=== PATIENT | female | born 1970 | race Native Hawaiian/Other Pacific Islander ===

== ENCOUNTER 2016-11-12 03:12 | Emergency (ER) | payer OTHER ==
[~2016-11-12] VITALS: Ht 157.5 cm; Wt 87.1 kg
[2016-11-12 04:25] LABS: POTASSIUM 3.6 mmol/L (3.6-5.2)
[2016-11-12 04:26] LABS: PLATELET COUNT 281 K/uL (152-353)
[2016-11-12 05:22] VITALS: BP 126/80; TEMP 98.1
== END 2016-11-12 05:23 | disposition home or self-care (01) ==
LOC: ED 03:12
PROVIDERS: Emergency Medicine
DX: K21.9 Gastro-esophageal reflux disease without esophagitis (principal); K59.00 Constipation, unspecified; R79.89 Other specified abnormal findings of blood chemistry
CPT/HCPCS: 36415; 80053; 80074; 85027; 96360; 99284

== ENCOUNTER 2016-11-28 11:59 | Outpatient (CLI) | payer OTHER | END 2016-11-28 19:02 | disposition home or self-care (01) | LOC: RAD 11:59 | DX: M25.511 Pain in right shoulder (principal) ==

== ENCOUNTER 2019-07-17 18:31 | Emergency (ER) | payer OTHER ==
[~2019-07-17] VITALS: Ht 154.9 cm; Wt 85.7 kg
[2019-07-17 20:32] VITALS: BP 151/72; TEMP 97.9
== END 2019-07-17 20:20 | disposition home or self-care (01) ==
LOC: ED 18:31
DX: N39.0 Urinary tract infection, site not specified (principal); M54.5 Low back pain
CPT/HCPCS: 81000; 87077; 87086; 87088; 87185; 99283

== ENCOUNTER 2019-12-13 20:58 | Emergency (ER) | payer OTHER ==
[~2019-12-13] VITALS: Ht 154.9 cm; Wt 85.7 kg
[2019-12-13 23:20] VITALS: BP 147/86; TEMP 98.5
== END 2019-12-13 23:20 | disposition home or self-care (01) ==
LOC: ED 20:58
DX: J06.9 Acute upper respiratory infection, unspecified (principal)
CPT/HCPCS: 87502; 87651; 96372; 99283; J1885; J2930

== ENCOUNTER 2019-12-15 19:32 | Emergency (ER) | payer OTHER ==
[~2019-12-15] VITALS: Ht 157.5 cm; Wt 88.9 kg
[2019-12-15 20:45] LABS: PLATELET COUNT 290 K/uL (152-353)
[2019-12-15 20:51] LABS: POTASSIUM 4.1 mmol/L (3.6-5.2)
[2019-12-16 00:45] VITALS: BP 150/72; TEMP 98.3
[2019-12-17] MEDS ORDERED: PAXIL20 MG PO (03:33)
[2019-12-17] MEDS ORDERED: LISI20TA31 (03:33)
[2019-12-17] MEDS ORDERED: LEVO500I3 PO (03:35)
[2019-12-17] MEDS ORDERED: VERA180T12 PO (03:36)
[2019-12-17] MEDS ORDERED: NOVOLIN R100 UNIT/1 SC (03:41)
== END 2019-12-16 00:45 | disposition home or self-care (01) ==
LOC: ED 19:32
PROVIDERS: Family Medicine
DX: T78.49XA Other allergy, initial encounter (principal)
CPT/HCPCS: 80053; 82947; 82962; 85027; 96360; 96361; 96372; 99284; J0171; J1815; J3410

== ENCOUNTER 2019-12-16 22:42 | Inpatient (IN) | payer OTHER ==
[~2019-12-16] VITALS: Ht 154.9 cm; Wt 104.9 kg
[2019-12-16 22:42] VITALS: BP 164/95; TEMP 98.9
[2019-12-17 00:02] LABS: PLATELET COUNT 245 K/uL (152-353)
[2019-12-17 00:31] LABS: POTASSIUM 3.4 mmol/L (3.6-5.2)
--- NOTE | 2019-12-17 02:39 | NUR ---
12/17/2019 0150 PT TO ROOM 1114 DX HYPERGLYCEMIA,ALLERGIC REACTION.PT STATES CAMR TO ER HAVING TROUBLE BREATHING WITH TINGLING AND SWELLING TO MOUTH.PT STATES SHE WAS TREATED IN ER LAST NIGHT BUT RASH HAS GOT WORSE ALONG WITH ELEVATED BLOOD SUGAR.22 TO RT AC INTACT WITH NS TO RUN AT 125ML/HR.CALL LIGHT WITHIN REACH.FAMILY MEMBERS PRESENT IN ROOM.
[2019-12-17 02:58] VITALS: BP 160/66; TEMP 97.9; Ht 154.9 cm; Wt 104.9 kg
[2019-12-17] MEDS ORDERED: LISI20TA31 (03:33)
[2019-12-17] MEDS ORDERED: PAXIL20 MG PO (03:33)
[2019-12-17] MEDS ORDERED: LEVO500I3 PO (03:35)
[2019-12-17] MEDS ORDERED: VERA180T12 PO (03:36)
[2019-12-17] MEDS ORDERED: NOVOLIN R100 UNIT/1 SC (03:41)
[2019-12-17 03:57] VITALS: BP 160/66; TEMP 97.9
--- NOTE | 2019-12-17 05:23 | NUR ---
PATIENT WAS ADMITTED WITH SOB AND AN ALLERGIC REACTION, HYPERGLYCEMIA AND LABS REVEAL: WBC, GL 520, BUN, CREAT, ALL ELEVATED AND NA, K, CL, AND CALCIUM DEPRESSED. AND HAS A HISTORY OF DM AND HTN, THEN B/S AT 22 PER NURSING NOTES, N/S AT 125 ML Q HOUR, 49TOF, ON 1800 CALORIE DIET, TROUBLE BREATHING D/T THE ALLERGIC REACTION. IS 5'1"/61 " AND IS 231.4 LBS. AND IBW = 105+/-10% ( 94-116 LBS.) AND KCAL NEEDS FOR IBW X 25 = 1200, X 30 = 1400, X 35 = 1700, X 40 = 1900 KCAL/DAY AND PROTEIN NEEDS X .8 TO 1.5 = 38 TO 72 GRAMS A DAY AND FLUIDS FOR WEIGHT X 25 TO 30 = 2600 TO 3200 ML PER DAY. BMI = 43.6 AND IS HIGHER THAN THE HIGHEST STAGE OF OBESITY AND IS 220% OF IBW. RECOMMEND: 1-ENCOURGE TO FOLLOW DIET AND ADD HIGH FIBER.
[2019-12-17 08:00] VITALS: BP 156/63; TEMP 98.7
--- NOTE | 2019-12-17 11:00 | NUR ---
ESTELLE ALCANTARA AT THE NURSES STATION AFTER ASSITING PATIENT TO THE BATHROOM. TECH STATED PATIENT COMMENTED THAT SHE WAS HAVING TROUBLE SWALLOWING AND WHILE SHE WAS DRINKING SOME FLUID SHE FELT THE WATER JUST DRIP FROM HER MOUTH AND WAS NOT ABLE TO SWALLOW. THIS NURSE NOTIFIED ABOUT INCIDENT AND WE BOTH WENT TO ASSESS PATIENT. UPON ENTERING ROOM PATIENT NOTED WITH SHORTNESS OF BREATH WITH SLIGHT LABORED BREATHING WHEN TALKING, PATIENT STATES I JUST FEEL LIKE THE SALIVA IS IN THE BACK OF MY THROAT. ASSESSED THROAT AND IT WAS NOTED SLIGHTLY DIFFICULT TO OPEN HER MOUTH AND STICK HER TONGUE. ORDERED PEPCID 40 MG IV , BENADRYL 25 MG IV, ADRENLIN 0.5 MG IM AND RACEMIC EPINEPHRINE BREATHING TREATMENT. RESPIRATORY IS HERE AT THE BEDSIDE. IT WAS ALSO NOTED AT THIS TIME PATIENT HR INCREASED 155-160. ALL MEDICATIONS GIVEN ORDERED AND WITHIN A FEW MINUTES PATIENT LABORED BREATHING MINIMIZED AND PATIENT STARTED FEELING BETTER. PATIENT CONTINUED WITH URTICARIA WITH HIVES/WELTS NOTED IN ALL EXTREMETIES, TORSO AND NECK. NEW ORDERS GIVEN TO TRANSFER PATIENT TO PCU FOR FURTHER CLOSER OBSERVATION.
--- NOTE | 2019-12-17 12:30 | NUR ---
PATIENT TRANSFERRED TO PCU #3 IN BED WITHOUT DIFFICULTY. REPORT GIVEN TO CONNIE KESSLER RN.
--- NOTE | 2019-12-17 13:45 | NUR ---
PATIENT ADMITTED TO [facility] FROM MED SURG FLOOR ROOM 1114. ADMITTED UNDER DR PACHECO SERVICES. PATIENT ORIENTED TO ROOM PLACED ON MONITOR. DENIES PAIN C/O ITCHING. IV FLUIDS INFUSING WITHOUT DIFFICULTY.
[2019-12-17 14:30] VITALS: BP 176/65; TEMP 99.3
--- NOTE | 2019-12-17 16:11 | NUR ---
PATIENT UP IN ROOM HR 105 CONTINUES TO C/O ITCHING DR PACHECO VISITED. RECIEVED HYDROXYZINE 25 MG IM RGM.
[2019-12-17 16:30] VITALS: BP 140/60; TEMP 99
--- NOTE | 2019-12-17 18:45 | NUR ---
ITCHING CONTINUES, CALLED TO DR PACHECO REPORT PATIENT STATUS. RECIEVED ORDERS TO GIVE BENADRYL AND VISTARIL IM. PULLED BOTH MEDS GIVEN IM ORDERED. REPORT TO ONCOMING SHIFT.
[2019-12-17 19:00] VITALS: BP 143/58; TEMP 97.9
--- NOTE | 2019-12-17 22:00 | NUR ---
PT AMBULATED TO RESTROOM.
[2019-12-18] VITALS (11 sets, daily range): BP systolic 117–147; BP diastolic 50–86; TEMP 97.6–98.4
--- NOTE | 2019-12-18 00:56 | NUR ---
PT ITCHING, HYDROXYZINE IV GIVEN
--- NOTE | 2019-12-18 05:00 | NUR ---
PT UP TO BSC TO VOID, TOLERATED WELL
--- NOTE | 2019-12-18 06:43 | NUR ---
RESTING AT PRESENT.
[2019-12-18 08:43] LABS: PLATELET COUNT 201 K/uL (152-353)
[2019-12-18 08:54] LABS: POTASSIUM 3.6 mmol/L (3.6-5.2)
--- NOTE | 2019-12-18 11:12 | NUR ---
DR PACHECO IN TO SEE PT. PT C/O ITCHING, MEDICATED WITH VISTARIL PER DR'S ORDERS.
--- NOTE | 2019-12-18 13:33 | NUR ---
PT RESTING WITH EYES CLOSED. DENIES ITCHING AT THIS TIME.
--- NOTE | 2019-12-18 15:16 | NUR ---
DR Darryl PACHECO BACK IN TO SEE PT.
[2019-12-18] MEDS ORDERED: HYDR25CA25 PO (15:39)
--- NOTE | 2019-12-18 15:55 | NUR ---
IV'S D/C'D CANNULAS INTACT SITES SECURED.PT UP IN ROOM DRESSING.
--- NOTE | 2019-12-18 16:00 | NUR ---
D/C INSTRUCTIONS. PT VERBALIZED UNDERSTANDING.
--- NOTE | 2019-12-18 16:07 | NUR ---
PT D/C STABLE WITH BELONGINGS VIA WC TO PRIVATE AUTO PER PRAVEEN STANLEY.
== END 2019-12-18 16:07 | disposition home or self-care (01) | DRG 916 ==
LOC: ED 22:42 → MED/SURG 12-17 00:58 → PCU 12-17 13:30 → MED/SURG 12-17 13:30 → PCU 12-17 13:30
PROVIDERS: Emergency Medicine; ADMIT Internal Medicine
DX: T88.6XXA Anaphylactic reaction due to adverse effect of correct drug or medicament properly administered, initial encounter (principal); L29.8 Other pruritus; L50.8 Other urticaria; I10 Essential (primary) hypertension; K21.9 Gastro-esophageal reflux disease without esophagitis; E03.8 Other specified hypothyroidism; E11.9 Type 2 diabetes mellitus without complications
CPT/HCPCS: 80053; 85027; 94664; 96360; 96372; 96375; 99284; J0171; J1200; J1815; J3410

== ENCOUNTER 2020-03-09 13:22 | Outpatient (CLI) | payer BC, OTHER ==
[~2020-03-09 13:22] MED LIST: HYDR25CA25 PO; LEVO500I3 PO; LISI20TA31; NOVOLIN R100 UNIT/1 SC; PAXIL20 MG PO; VERA180T12 PO
== END 2020-03-09 21:53 | disposition home or self-care (01) ==
LOC: MAMMO 13:22
DX: Z12.31 Encounter for screening mammogram for malignant neoplasm of breast (principal)

== ENCOUNTER 2020-05-29 13:14 | Inpatient (IN) | payer BC, OTHER ==
[~2020-05-29] VITALS: Ht 157.5 cm; Wt 89.5 kg
[2020-05-29] VITALS (8 sets, daily range): BP systolic 103–119; BP diastolic 48–63; TEMP 98.4–99.5; Ht 157.5 cm; Wt 89.5 kg
[2020-05-29 14:45] LABS: PLATELET COUNT 187 K/uL (152-353)
[2020-05-29 14:52] LABS: POTASSIUM 3.2 mmol/L (3.6-5.2); SODIUM 136 mmol/L (136-145)
[2020-05-29 15:06] LABS: PARTIAL THROMBOPLASTIN TIME 25.5 SECONDS (24.5-33.6)
[2020-05-30] VITALS: BP 108/47; TEMP 100.1
[2020-05-30 04:00] VITALS: BP 116/51; TEMP 99.8
[2020-05-30 08:00] VITALS: BP 124/68; TEMP 99.9
[2020-05-30 10:31] LABS: POTASSIUM 3.4 mmol/L (3.6-5.2)
[2020-05-30] MEDS ORDERED: OMEPRAZOLE DR40 MG PO (11:09)
[2020-05-30] MEDS ORDERED: LISI20TA31 PO (11:12)
[2020-05-30 12:00] VITALS: BP 127/66; TEMP 99.5
[2020-05-30 16:00] VITALS: BP 125/71; TEMP 102.3
[2020-05-30 20:00] VITALS: BP 110/64; TEMP 98.5
[2020-05-31] VITALS: BP 138/79; TEMP 98.7
[2020-05-31 04:00] VITALS: BP 148/43; TEMP 98.6
[2020-05-31 06:14] LABS: PLATELET COUNT 214 K/uL (152-353)
[2020-05-31 06:32] LABS: POTASSIUM 4.1 mmol/L (3.6-5.2)
[2020-05-31 08:00] VITALS: BP 12/65; TEMP 98.3
[2020-05-31 12:00] VITALS: BP 117/64; TEMP 98.7
[2020-05-31 19:38] VITALS: BP 127/69; TEMP 99.2
[2020-06-01] VITALS: BP 114/58; TEMP 99
[2020-06-01 04:01] VITALS: BP 132/71; TEMP 99.5
[2020-06-01 05:40] LABS: PLATELET COUNT 247 K/uL (152-353)
[2020-06-01 08:00] VITALS: BP 144/76; TEMP 100.2
[2020-06-01 12:00] VITALS: BP 140/85; TEMP 98.5
[2020-06-01 20:00] VITALS: BP 133/72; TEMP 98.6
[2020-06-02] VITALS (8 sets, daily range): BP systolic 112–133; BP diastolic 61–82; TEMP 97.5–99.4
[2020-06-02 05:17] LABS: PLATELET COUNT 288 K/uL (152-353)
[2020-06-02 05:21] LABS: POTASSIUM 3.7 mmol/L (3.6-5.2)
[2020-06-03] VITALS (19 sets, daily range): BP systolic 103–180; BP diastolic 44–88; TEMP 97.4–101.1
[2020-06-03 05:39] LABS: PLATELET COUNT 356 K/uL (152-353)
[2020-06-03 06:25] LABS: POTASSIUM 3.7 mmol/L (3.6-5.2)
[2020-06-04] VITALS (21 sets, daily range): BP systolic 107–164; BP diastolic 50–133; TEMP 98–98.8
[2020-06-04 09:53] LABS: POTASSIUM 3.9 mmol/L (3.6-5.2)
[2020-06-04 09:56] LABS: PLATELET COUNT 391 K/uL (152-353)
[2020-06-05] VITALS (22 sets, daily range): BP systolic 113–180; BP diastolic 47–86; TEMP 97.8–100.1
[2020-06-05 06:52] LABS: PLATELET COUNT 345 K/uL (152-353)
[2020-06-06] VITALS (21 sets, daily range): BP systolic 120–151; BP diastolic 50–91; TEMP 98.4–99.1
[2020-06-06 06:08] LABS: PLATELET COUNT 432 K/uL (152-353)
[2020-06-07] VITALS (19 sets, daily range): BP systolic 95–140; BP diastolic 37–73; TEMP 98.6–100.4
[2020-06-07 06:42] LABS: PLATELET COUNT 410 K/uL (152-353)
[2020-06-07 06:45] LABS: POTASSIUM 4.3 mmol/L (3.6-5.2)
[2020-06-08] VITALS (24 sets, daily range): BP systolic 96–143; BP diastolic 46–79; TEMP 97.8–99.4
[2020-06-08 08:10] LABS: PLATELET COUNT 434 K/uL (152-353)
[2020-06-08 08:15] LABS: POTASSIUM 4.5 mmol/L (3.6-5.2)
[2020-06-09] VITALS (20 sets, daily range): BP systolic 110–147; BP diastolic 35–81; TEMP 98.4–100.7
[2020-06-09 06:27] LABS: PLATELET COUNT 450 K/uL (152-353)
[2020-06-09 06:42] LABS: POTASSIUM 4.8 mmol/L (3.6-5.2)
[2020-06-10] VITALS (11 sets, daily range): BP systolic 75–142; BP diastolic 44–82; TEMP 98.1–100.5
[2020-06-10 05:10] LABS: POTASSIUM 4.7 mmol/L (3.6-5.2)
[2020-06-10 05:39] LABS: PLATELET COUNT 419 K/uL (152-353)
[2020-06-11] VITALS (22 sets, daily range): BP systolic 89–155; BP diastolic 35–78; TEMP 99.1–99.6
[2020-06-11 05:38] LABS: POTASSIUM 4.3 mmol/L (3.6-5.2)
[2020-06-12] VITALS (17 sets, daily range): BP systolic 99–156; BP diastolic 34–103; TEMP 97.5–98.9
[2020-06-12 06:01] LABS: POTASSIUM 5.1 mmol/L (3.6-5.2)
[2020-06-13] VITALS (16 sets, daily range): BP systolic 100–132; BP diastolic 26–68; TEMP 97.8–98.6
[2020-06-13 05:44] LABS: PLATELET COUNT 359 K/uL (152-353)
[2020-06-13 05:51] LABS: POTASSIUM 4.9 mmol/L (3.6-5.2)
[2020-06-13] MEDS ORDERED: VICTOZA18 MG/3 ML SC (16:34)
[2020-06-14] VITALS (19 sets, daily range): BP systolic 98–123; BP diastolic 50–70; TEMP 97.4–98.6
[2020-06-14 08:21] LABS: POTASSIUM 4.5 mmol/L (3.6-5.2)
[2020-06-14 08:23] LABS: PLATELET COUNT 373 K/uL (152-353)
[2020-06-15] VITALS (10 sets, daily range): BP systolic 101–139; BP diastolic 47–77; TEMP 98–98.5
[2020-06-15 08:43] LABS: PLATELET COUNT 334 K/uL (152-353)
[2020-06-15 08:47] LABS: POTASSIUM 4.2 mmol/L (3.6-5.2)
[2020-06-16 04:00] VITALS: BP 117/55; TEMP 97.6
[2020-06-16 08:00] VITALS: BP 124/77; TEMP 97.9
[2020-06-16 08:11] LABS: POTASSIUM 4.7 mmol/L (3.6-5.2)
[2020-06-16 08:13] LABS: PLATELET COUNT 375 K/uL (152-353)
[2020-06-16 12:00] VITALS: BP 109/41; TEMP 98.7
[2020-06-16 16:00] VITALS: BP 125/60; TEMP 98.5
[2020-06-16 19:53] VITALS: BP 96/50; TEMP 98.9
[2020-06-17] VITALS: BP 108/51; TEMP 98.6
[2020-06-17 04:00] VITALS: BP 96/42; TEMP 98.3
[2020-06-17 05:36] LABS: POTASSIUM 4.7 mmol/L (3.6-5.2)
[2020-06-17 06:21] LABS: PLATELET COUNT 312 K/uL (152-353)
[2020-06-17 08:00] VITALS: BP 113/48; TEMP 98
[2020-06-17 12:00] VITALS: BP 112/48; TEMP 98.1
[2020-06-17 16:00] VITALS: BP 119/57; TEMP 98.2
[2020-06-17 20:00] VITALS: BP 112/44; TEMP 98.5
[2020-06-18] VITALS (7 sets, daily range): BP systolic 101–121; BP diastolic 36–76; TEMP 97.8–98.8
[2020-06-18 06:57] LABS: PLATELET COUNT 340 K/uL (152-353)
[2020-06-19 04:00] VITALS: BP 128/55; TEMP 98.2
[2020-06-19 05:39] LABS: PLATELET COUNT 342 K/uL (152-353)
[2020-06-19 05:58] LABS: POTASSIUM 4.6 mmol/L (3.6-5.2)
[2020-06-19 08:00] VITALS: BP 118/68; TEMP 97.9
[2020-06-19 12:00] VITALS: BP 107/60; TEMP 97.5
[2020-06-19 16:00] VITALS: BP 109/55; TEMP 98.6
[2020-06-19 20:00] VITALS: BP 117/57; TEMP 98.2
[2020-06-19 23:59] VITALS: BP 118/80; TEMP 98.2
[2020-06-20 01:46] LABS: PLATELET COUNT 376 K/uL (152-353)
[2020-06-20 04:00] VITALS: BP 124/50; TEMP 98.1
[2020-06-20 06:57] LABS: POTASSIUM 4.9 mmol/L (3.6-5.2)
[2020-06-20 08:00] VITALS: BP 138/75; TEMP 97.7
[2020-06-20 12:00] VITALS: BP 113/58; TEMP 97.7
[2020-06-20 16:00] VITALS: BP 137/59; TEMP 97.7
[2020-06-20 20:00] VITALS: BP 130/67; TEMP 97.3
[2020-06-21 00:07] VITALS: BP 121/58; TEMP 98.7
[2020-06-21 04:00] VITALS: BP 130/79; TEMP 97.7
[2020-06-21 08:00] VITALS: BP 126/64; TEMP 97.6
[2020-06-21] MEDS ORDERED: ASPIRIN325 M1 PO (11:49)
[2020-06-21] MEDS ORDERED: ASCO500T18 PO (11:49)
[2020-06-21] MEDS ORDERED: PULMICORT180 MCG/AC INH (11:50)
[2020-06-21] MEDS ORDERED: CHOL100034 PO (11:51)
[2020-06-21] MEDS ORDERED: IPRAAER INH (11:51)
[2020-06-21] MEDS ORDERED: ZINC220C4 PO (11:52)
[2020-06-21] MEDS ORDERED: PEPCID40 MG PO (11:53)
[2020-06-21 12:00] VITALS: BP 112/48; TEMP 97.6
== END 2020-06-21 14:25 | disposition home or self-care (01) | DRG 177 ==
LOC: ED 13:24 → MED/SURG 15:00 → UNDODEPER 05-30 08:15 → ICU 06-02 21:05 → MED/SURG 06-15 19:00
PROVIDERS: Internal Medicine; Internal Medicine Endocrinology, Diabetes & Metabolism; ADMIT Hospitalist
PROC: 30233K1 Transfusion of Nonautologous Frozen Plasma into Peripheral Vein, Percutaneous Approach (ICD-10-PCS; principal; 2020-05-30)
DX: U07.1 COVID-19 (principal); J96.01 Acute respiratory failure with hypoxia; E11.9 Type 2 diabetes mellitus without complications; I10 Essential (primary) hypertension; E03.8 Other specified hypothyroidism; K21.9 Gastro-esophageal reflux disease without esophagitis; F41.8 Other specified anxiety disorders; R07.89 Other chest pain; R79.89 Other specified abnormal findings of blood chemistry
CPT/HCPCS: 36415; 36600; 80053; 81000; 82550; 82553; 82805; 82947; 83605; 83880; 84484; 85027; 85379; 85610; 85730; 86900; 86901; 87040; 87077; 87185; 87186; 87205; 93005; 94667; 94668; 94760; 96360; 99284; C1751; J0456; J0696; J1100; J1650; J1815; J1940; J2060; J2405; P9017; Q9963

== ENCOUNTER 2021-10-28 14:16 | Emergency (ER) | payer OTHER ==
[~2021-10-28] VITALS: Ht 154.9 cm; Wt 84.8 kg
[~2021-10-28 14:16] MED LIST changes: +ASCO500T18 PO; +ASPIRIN325 M1 PO; +CHOL100034 PO; +IPRAAER INH; +LISI20TA31 PO; +OMEPRAZOLE DR40 MG PO; +PEPCID40 MG PO; +PULMICORT180 MCG/AC INH; +VICTOZA18 MG/3 ML SC; +ZINC220C4 PO
[2021-10-28 14:17] VITALS: TEMP 99.1
[2021-10-28 14:55] LABS: PLATELET COUNT 330 K/uL (152-353)
[2021-10-28 15:00] VITALS: BP 152/72
[2021-10-28 15:05] LABS: POTASSIUM 3.7 mmol/L (3.6-5.2)
== END 2021-10-28 16:28 | disposition home or self-care (01) ==
LOC: ED 14:16
PROVIDERS: Family Medicine
DX: T78.49XA Other allergy, initial encounter (principal); L50.0 Allergic urticaria; E11.9 Type 2 diabetes mellitus without complications; X58.XXXA Exposure to other specified factors, initial encounter; Y92.511 Restaurant or cafe as the place of occurrence of the external cause
CPT/HCPCS: 36415; 80053; 80307; 81000; 85027; 86140; 96360; 96372; 96375; 99284; J0171; J2930

== ENCOUNTER 2021-11-23 09:58 | Emergency (ER) | payer OTHER ==
[~2021-11-23] VITALS: Ht 154.9 cm; Wt 84.8 kg
[2021-11-23 10:00] VITALS: BP 157/96; TEMP 97.9
[2021-11-23 10:31] LABS: PLATELET COUNT 287 K/uL (152-353)
[2021-11-23 10:41] LABS: POTASSIUM 4.7 mmol/L (3.6-5.2)
== END 2021-11-23 11:29 | disposition home or self-care (01) ==
LOC: ED 09:58
PROVIDERS: Emergency Medicine
DX: D89.49 Other mast cell activation disorder (principal); E11.65 Type 2 diabetes mellitus with hyperglycemia; Z79.899 Other long term (current) drug therapy; E86.0 Dehydration
CPT/HCPCS: 80048; 84484; 85027; 93005; 96365; 96375; 99284; J1200; J2930

== ENCOUNTER 2021-12-26 09:45 | Emergency (ER) | payer OTHER ==
[~2021-12-26] VITALS: Ht 154.9 cm; Wt 84.8 kg
[2021-12-26 09:50] VITALS: TEMP 97
[2021-12-26 11:30] VITALS: BP 128/72
== END 2021-12-26 11:40 | disposition home or self-care (01) ==
LOC: ED 09:45
DX: D89.49 Other mast cell activation disorder (principal); T78.49XA Other allergy, initial encounter; L50.8 Other urticaria; X58.XXXA Exposure to other specified factors, initial encounter; Y92.89 Other specified places as the place of occurrence of the external cause
CPT/HCPCS: 96372; 99283; J1100; J3410

== ENCOUNTER 2022-01-01 10:46 | Observation (INO) | payer OTHER ==
[~2022-01-01] VITALS: Ht 157.5 cm; Wt 97.2 kg
[~2022-01-01 10:46] MED LIST changes: +LEVO0.1T6 PO; -LEVO500I3 PO; -VERA180T12 PO; +VERA240T17 PO
[2022-01-01 10:50] VITALS: BP 156/78; TEMP 97.9
[2022-01-01 11:29] LABS: PLATELET COUNT 210 K/uL (152-353)
[2022-01-01 11:41] LABS: POTASSIUM 4.9 mmol/L (3.6-5.2); SODIUM 135 mmol/L (136-145)
[2022-01-01 12:00] VITALS: BP 133/79
[2022-01-01 13:00] VITALS: BP 111/60
[2022-01-01 13:26] LABS: POTASSIUM 4.3 mmol/L (3.6-5.2)
[2022-01-01 14:00] VITALS: BP 100/81
[2022-01-01 18:38] VITALS: BP 121/68; TEMP 97.5; Ht 157.5 cm; Wt 97.2 kg
[2022-01-01 20:00] VITALS: BP 159/79; TEMP 98.2
[2022-01-02] VITALS: BP 142/61; TEMP 98.2
[2022-01-02 04:00] VITALS: BP 118/63; TEMP 98
[2022-01-02 08:00] VITALS: BP 172/86; TEMP 97.9
[2022-01-02] MEDS ORDERED: OZEMPIC4 MG/3 ML SC (08:05)
[2022-01-02] MEDS ORDERED: DEXAMETHASON4 MG PO (08:06)
[2022-01-02] MEDS ORDERED: TRELEGY ELLIPTA1 AE1 INH (08:08)
[2022-01-02] MEDS ORDERED: MONTELUKAST SOD10 MG PO (08:09)
[2022-01-02] MEDS ORDERED: VITAMIN D50000 UNIT PO (08:10)
[2022-01-02] MEDS ORDERED: CETIRIZINE HYDR10 MG PO (08:14)
[2022-01-02] MEDS ORDERED: NIFEDIPINE PO (10:23)
[2022-01-02] MEDS ORDERED: HYDROXYZINE HYD10 MG PO (10:25)
[2022-01-02 12:00] VITALS: BP 124/73; TEMP 98
[2022-01-02 16:00] VITALS: BP 139/63; TEMP 98.6
[2022-01-02 20:00] VITALS: BP 128/80; TEMP 97.9
[2022-01-03] VITALS: BP 132/70; TEMP 97.8
[2022-01-03 04:00] VITALS: BP 136/59; TEMP 97.8
[2022-01-03 08:00] VITALS: BP 144/81; TEMP 98.1
[2022-01-03 12:00] VITALS: BP 141/79; TEMP 98.4
== END 2022-01-03 16:05 | disposition home or self-care (01) ==
LOC: ED 10:46 → MED/SURG 14:30
PROVIDERS: Emergency Medicine Emergency Medical Services; ADMIT Internal Medicine; ATTEND Internal Medicine
DX: E11.65 Type 2 diabetes mellitus with hyperglycemia (principal); I10 Essential (primary) hypertension; E03.8 Other specified hypothyroidism; K21.9 Gastro-esophageal reflux disease without esophagitis; F32.89 Other specified depressive episodes; D47.09 Other mast cell neoplasms of uncertain behavior
CPT/HCPCS: 36415; 36600; 80048; 80053; 81000; 81002; 82805; 82947; 82948; 83735; 84100; 84484; 85027; 87635; 93005; 94760; 96360; 96361; 96372; 96374; 96375; 99220; 99284; G0378; J1815; U0003

== ENCOUNTER 2022-02-02 16:54 | Inpatient (IN) | payer OTHER ==
[~2022-02-02] VITALS: Ht 157.5 cm; Wt 94.8 kg
[~2022-02-02 16:54] MED LIST changes: +CETIRIZINE HYDR10 MG PO; +DEXAMETHASON4 MG PO; +HYDROXYZINE HYD10 MG PO; +MONTELUKAST SOD10 MG PO; +NIFEDIPINE PO; +OZEMPIC4 MG/3 ML SC; +TRELEGY ELLIPTA1 AE1 INH; +VITAMIN D50000 UNIT PO
[2022-02-02 17:00] VITALS: BP 165/96; TEMP 98.1
[2022-02-02 17:35] LABS: PLATELET COUNT 221 K/uL (152-353)
[2022-02-02 17:47] LABS: POTASSIUM 5.4 mmol/L (3.6-5.2)
[2022-02-02 19:15] VITALS: BP 165/91
[2022-02-03] VITALS: BP 136/78; BP 164/91; TEMP 98.2
[2022-02-03 00:39] VITALS: BP 164/91; TEMP 98.2; Ht 157.5 cm; Wt 94.8 kg
[2022-02-03 04:00] VITALS: BP 146/85; TEMP 97.7
[2022-02-03 08:00] VITALS: BP 163/93; TEMP 97.7
[2022-02-03 09:21] LABS: PLATELET COUNT 187 K/uL (152-353)
[2022-02-03 09:32] LABS: POTASSIUM 4.2 mmol/L (3.6-5.2)
[2022-02-03 12:00] VITALS: BP 156/97; TEMP 98.3
[2022-02-03] MEDS ORDERED: LANTUS100 UNIT/M SC (13:53)
[2022-02-03] MEDS ORDERED: HUMULIN R100 UNIT/M IM (13:55)
== END 2022-02-03 15:17 | disposition home or self-care (01) | DRG 313 ==
LOC: ED 16:54 → MED/SURG 18:45
PROVIDERS: ADMIT Hospitalist; ATTEND Family Medicine
DX: R07.89 Other chest pain (principal); E11.65 Type 2 diabetes mellitus with hyperglycemia; I10 Essential (primary) hypertension; E03.8 Other specified hypothyroidism; K21.9 Gastro-esophageal reflux disease without esophagitis; F32.A Depression, unspecified; D3A.8 Other benign neuroendocrine tumors
CPT/HCPCS: 36415; 36416; 36600; 80053; 81000; 81002; 81025; 82550; 82805; 83735; 83880; 84100; 84484; 85027; 85610; 85730; 87635; 93005; 96360; 96361; 96365; 96375; 99284; J0456; J0696; J1650; J1815; J3475; J3490; U0003

== ENCOUNTER 2022-03-09 14:48 | Emergency (ER) | payer OTHER ==
[~2022-03-09] VITALS: Ht 157.5 cm; Wt 96.6 kg
[~2022-03-09 14:48] MED LIST changes: +HUMULIN R100 UNIT/M IM; +LANTUS100 UNIT/M SC
[2022-03-09 15:09] VITALS: BP 153/96; TEMP 97.5
== END 2022-03-09 17:55 | disposition home or self-care (01) ==
LOC: ED 14:48
DX: S93.492A Sprain of other ligament of left ankle, initial encounter (principal); W10.1XXA Fall (on)(from) sidewalk curb, initial encounter; Y93.K1 Activity, walking an animal; Y92.89 Other specified places as the place of occurrence of the external cause
CPT/HCPCS: 99283; J1885

== ENCOUNTER 2022-08-01 09:24 | Outpatient (CLI) | payer OTHER | END 2022-08-01 18:58 | disposition home or self-care (01) | LOC: US 09:24 | PROVIDERS: ATTEND Registered Nurse | DX: N94.6 Dysmenorrhea, unspecified (principal); N92.6 Irregular menstruation, unspecified ==

== ENCOUNTER 2022-11-05 20:56 | Emergency (ER) | payer OTHER ==
[~2022-11-05] VITALS: Ht 157.5 cm; Wt 90.3 kg
[2022-11-05 22:21] LABS: PLATELET COUNT 256 K/uL (152-353)
[2022-11-05 22:30] LABS: POTASSIUM 3.6 mmol/L (3.6-5.2)
[2022-11-06 01:13] VITALS: BP 129/85; TEMP 98.2
== END 2022-11-06 01:13 | disposition home or self-care (01) ==
LOC: ED 20:56
PROVIDERS: Emergency Medicine Emergency Medical Services
DX: K52.89 Other specified noninfective gastroenteritis and colitis (principal); N39.0 Urinary tract infection, site not specified; J18.9 Pneumonia, unspecified organism
CPT/HCPCS: 36415; 80053; 81000; 81002; 82150; 83690; 83735; 85027; 87086; 87088; 96361; 96374; 96375; 99284; J2405; J3490